=== PATIENT | male | born 1955 | race Caucasian/White ===

== ENCOUNTER 2020-08-19 13:40 | Emergency (ER) | payer MEDICAID ==
[~2020-08-19] VITALS: Ht 170.2 cm; Wt 54.5 kg
[2020-08-19] MEDS ORDERED: SODIUM CHLORIDE 0.9% 1,000 ML IV ONE (14:30)
[2020-08-19] MEDS ORDERED: METOCLOPRAMIDE HCL 5 MG/ML 2 ML VIAL IVP ONE (14:30)
[2020-08-19] MEDS ORDERED: DiphenhydrAMINE HCL 50 MG/ML VIAL IVP ONE (14:30)
[2020-08-19 16:49] VITALS: BP 145/90
== END 2020-08-19 17:09 | disposition home or self-care (01) ==
LOC: EMS 13:43
DX: R51.9 Headache, unspecified (principal); F15.10 Other stimulant abuse, uncomplicated; F12.90 Cannabis use, unspecified, uncomplicated
CPT/HCPCS: 70450; 96361; 96374; 96375; 99284; J1200; J2765; J7030